=== PATIENT | male | born 1940 | race Caucasian/White ===

== ENCOUNTER → 2017-06-13 | Outpatient (CLI) | payer OTHER, BC ==
[~2017-06-13] MED LIST: ACETAMINOPHEN650 M5 PO; ACTOS 30 MG TAB30 MG; ASPIRIN325 PO; ATIVAN0.5 MG PO; BROVANA15 MCG/2 M; BROVANA15 MCG/2 M INH; BUDESONIDE0.25 MG/2 IH; CARTIA XT240 M1 PO; CEFTIN 250 MG250 MG PO; CIPROFLOXACIN500 M3 PO; COLACE100 MG PO; CYCLOBENZAPRINE5 MG PO; DEMADEX20 MG PO; DILTIAZEM 24HR240 M1 PO; DUONEB 2.5-0.5 M3 ML INH; ENDOCET 5-3251 EACH PO; FUROSEMIDE PO; GABAPENTIN 100100 MG PO; GILPIZIDE PO; GLIPIZIDE 10 MG10 MG PO; GLUCOTROL5 MG PO; HYDROCODON-ACE1 EAC7 PO; IBUPROFEN200 M2; LANTUS SOL100 UNIT/1 SQ; LASIX 20 MG TAB20 MG PO; LEVAQUIN 500 M500 M2 PO; LIPITOR40 MG PO; LOPRESSOR25 PO; METAMUCIL PAC1 UDPKT PO; METFORMIN HCL1000 M1; NEURONTIN 300300 M1 PO; NITROGLYCERIN0.4 MG SUBLING; OXYCODONE HCL 55 MG PO; PACERONE 200 M200 M1 PO; PRINIVIL PO; PRINIVIL20 MG PO; PULMICORT0.5 MG/22 INH; SPIRIVA INH; SYNTHROID100 MCG PO; TAMSULOSIN HCL0.4 MG PO; TYLENOL325 MG PO; VENTOLIN HFA 1818 GM INH; VENTOLIN HFA INH8 GM INH; VITAMIN D2000 UNIT PO; XARELTO15 MG PO; XOPENEX HFA15 GM INH; ZANTAC 150MG T150 MG PO
== END ==
LOC: SPEC 06:30 → MRI 08:32
DX: S32.010A Wedge compression fracture of first lumbar vertebra, initial encounter for closed fracture (principal); M48.061 Spinal stenosis, lumbar region without neurogenic claudication; M51.26 Other intervertebral disc displacement, lumbar region; M47.896 Other spondylosis, lumbar region; I48.92 Unspecified atrial flutter; E11.9 Type 2 diabetes mellitus without complications; J44.9 Chronic obstructive pulmonary disease, unspecified; I10 Essential (primary) hypertension; E78.00 Pure hypercholesterolemia, unspecified; Z87.891 Personal history of nicotine dependence; X58.XXXA Exposure to other specified factors, initial encounter; Y93.89 Activity, other specified; Y92.89 Other specified places as the place of occurrence of the external cause; Y99.8 Other external cause status

== ENCOUNTER → 2017-06-17 | Outpatient (CLI) | payer OTHER, BC ==
[~2017-06-17] VITALS: Ht 172.7 cm; Wt 111.1 kg
[2017-06-17 09:45] VITALS: BP 102/33
[2017-06-17 11:21] LABS: HEMATOCRIT 31.9 % (42.0-52.0); HEMOGLOBIN 10.7 gm/dL (14.0-18.0); MCHC 33.7 g/dL (28.0-37.0); RBC 3.59 mil/uL (4.50-6.00); RDW 14.6 % (10.5-14.5); WBC 6.8 thou/uL (4.0-11.0)
[2017-06-17 11:28] LABS: CALCIUM 9.1 mg/dL (8.5-10.1); CREATININE 1.1 mg/dL (0.7-1.3); POTASSIUM 4.3 mmol/L (3.5-5.1)
[2017-06-17 11:41] LABS: APTT 25.6 Seconds (24.5-32.8); PROTIME 10.5 Seconds (9.3-11.4)
== END | disposition home or self-care (01) ==
LOC: SPEC 09:27
PROVIDERS: Radiology Vascular & Interventional Radiology
DX: M80.88XA Other osteoporosis with current pathological fracture, vertebra(e), initial encounter for fracture (principal); M54.9 Dorsalgia, unspecified; E11.9 Type 2 diabetes mellitus without complications; I10 Essential (primary) hypertension; J44.9 Chronic obstructive pulmonary disease, unspecified; E78.00 Pure hypercholesterolemia, unspecified; I48.91 Unspecified atrial fibrillation; K21.9 Gastro-esophageal reflux disease without esophagitis; G47.33 Obstructive sleep apnea (adult) (pediatric); E66.09 Other obesity due to excess calories; Z98.890 Other specified postprocedural states; Z98.41 Cataract extraction status, right eye; Z98.42 Cataract extraction status, left eye; Z87.891 Personal history of nicotine dependence; Z79.899 Other long term (current) drug therapy; Z79.01 Long term (current) use of anticoagulants; Z85.118 Personal history of other malignant neoplasm of bronchus and lung; Z79.4 Long term (current) use of insulin; Z88.0 Allergy status to penicillin; Z88.8 Allergy status to other drugs, medicaments and biological substances; Z79.891 Long term (current) use of opiate analgesic

== ENCOUNTER 2017-06-19 11:20 | Inpatient (IN) | payer OTHER, BC ==
[~2017-06-19] VITALS: Ht 172.7 cm; Wt 111.1 kg
[~2017-06-19 11:20] MED LIST changes: -CYCLOBENZAPRINE5 MG PO; -LEVAQUIN 500 M500 M2 PO; -NEURONTIN 300300 M1 PO; -OXYCODONE HCL 55 MG PO; -VITAMIN D2000 UNIT PO; -XOPENEX HFA15 GM INH
[2017-06-19 11:21] VITALS: BP 110/59
[2017-06-19 11:50] LABS: ABSOLUTE NEUTROPHILS 7.9 thou/uL (1.4-8.2); BASOPHILS 0.5 % (0.0-2.0); EOSINOPHILS 0.9 % (0.0-3.0); HEMATOCRIT 32.2 % (42.0-52.0); HEMOGLOBIN 10.8 gm/dL (14.0-18.0); LYMPHOCYTES 8.3 % (24.0-44.0); MCHC 33.7 g/dL (28.0-37.0); MCV 88.9 fL (80.0-100.0); MONOCYTES 11.2 % (1.0-8.0); PLATELET COUNT 214 thou/uL (150-400); POLYS 79.1 % (36.0-66.0); RBC 3.62 mil/uL (4.50-6.00); RDW 14.5 % (10.5-14.5)
[2017-06-19 12:03] LABS: POTASSIUM 4.4 mmol/L (3.5-5.1); PROTIME 10.3 Seconds (9.3-11.4)
[2017-06-19 12:10] LABS: ALBUMIN 2.8 g/dL (3.4-5.0); TOTAL BILIRUBIN 0.3 mg/dL (<0.1-1.0); TOTAL PROTEIN 6.3 g/dL (6.4-8.2)
[2017-06-19 13:44] VITALS: BP 103/64
[2017-06-19 13:45] VITALS: BP 103/64
[2017-06-19 14:15] VITALS: BP 140/75
[2017-06-19 20:35] VITALS: BP 129/66
[2017-06-20 05:11] VITALS: BP 110/53
[2017-06-20 07:31] VITALS: BP 115/49
[2017-06-20] MEDS ORDERED: CYCLOBENZAPRINE5 MG PO (10:33)
[2017-06-20 10:51] VITALS: BP 115/49
[2017-09-12] MEDS ORDERED: NEURONTIN 300300 M1 PO (14:59)
[2017-09-12] MEDS ORDERED: OXYCODONE HCL 55 MG PO (15:04)
[2017-09-12] MEDS ORDERED: PACERONE 200 M200 M1 PO (15:11)
[2017-09-16] MEDS ORDERED: LEVAQUIN 500 M500 M2 PO (12:51)
[2017-09-16] MEDS ORDERED: CYCLOBENZAPRINE5 MG PO (12:52)
[2017-09-16] MEDS ORDERED: OXYCODONE HCL 55 MG PO ×2 (12:54→14:01)
[2017-09-16] MEDS ORDERED: SPIRIVA INH (13:06)
[2017-09-16] MEDS ORDERED: VITAMIN D2000 UNIT PO (13:06)
[2017-09-16] MEDS ORDERED: XOPENEX HFA15 GM INH (14:01)
== END 2017-06-20 11:35 | disposition home or self-care (01) | DRG 515 ==
LOC: ER 11:20 → EROBS 12:45 → 4N 12:45 → ENTRNSPT 06-20 11:23 → EDTRNSPTSTS 06-20 11:25 → 4N 06-20 11:35
PROVIDERS: Physician Assistant
PROC: 0QS03ZZ Reposition Lumbar Vertebra, Percutaneous Approach (ICD-10-PCS; principal; 2017-06-17)
PROC: 0QU03JZ Supplement Lumbar Vertebra with Synthetic Substitute, Percutaneous Approach (ICD-10-PCS; principal; 2017-06-17)
DX: M62.830 Muscle spasm of back (principal); E43 Unspecified severe protein-calorie malnutrition; I48.92 Unspecified atrial flutter; S39.012A Strain of muscle, fascia and tendon of lower back, initial encounter; E66.9 Obesity, unspecified; I48.91 Unspecified atrial fibrillation; E11.9 Type 2 diabetes mellitus without complications; J44.9 Chronic obstructive pulmonary disease, unspecified; I10 Essential (primary) hypertension; E78.00 Pure hypercholesterolemia, unspecified; G47.30 Sleep apnea, unspecified; D13.39 Benign neoplasm of other parts of small intestine; N28.1 Cyst of kidney, acquired; B02.9 Zoster without complications; M54.9 Dorsalgia, unspecified; Z79.4 Long term (current) use of insulin; Z79.899 Other long term (current) drug therapy; Z88.0 Allergy status to penicillin; Z88.8 Allergy status to other drugs, medicaments and biological substances; Z98.42 Cataract extraction status, left eye; Z98.41 Cataract extraction status, right eye; Z68.37 Body mass index [BMI] 37.0-37.9, adult; Z87.891 Personal history of nicotine dependence; X58.XXXA Exposure to other specified factors, initial encounter; Y93.89 Activity, other specified; Y92.89 Other specified places as the place of occurrence of the external cause; Y99.8 Other external cause status
CPT/HCPCS: 10091

== ENCOUNTER 2018-04-05 16:37 | Inpatient (IN) | payer OTHER, BC ==
[~2018-04-05] VITALS: Ht 172.7 cm; Wt 117.9 kg
--- NOTE | ~2018-04-05 | EKG ---
[address] [address] ELECTROCARDIOGRAM REPORT Name: GONSALO SPRINGERD Bhanu Room #: 463-P ADM IN M.R.#: [id number] Admission: 04/05/18 Attend Phys: Jermaine Hays MD Discharge: Date of : 39 Report #: [id number] THIS REPORT FOR: //name// [facility] ED Test Date: 2018-04-05 Test Time: 16:54:11 Pat Name: ENOCH SPRINGER Department: Room: 46 Gender: M Fuel Quality Tech: WG : 1940 Requested By: Marcelle Li Order Number: [id number] MD: Ciro Romeo Measurements Intervals [place] Rate: 104 P: 51 KS: 100 QRS: -61 QRSD: 139 T: 51 QT: 406 QTc: 534 Interpretive Statements Atrial fibrillation Electronically Signed On 04-05-2018 21:10:24 PAPER FOLDER by Ciro Romeo [email or web address] <ELECTRONICALLY SIGNED> By: Ciro Romeo MD 04/05/182109 53 [id number] Ciro Romeo MD /JASIEL
--- NOTE | ~2018-04-05 | HC ---
[facility] [place] [address] CONSULTATION Name: ENOCH SPRINGER Room #: 463-P ADM IN M.R.#: [id number] Admission: 04/05/18 Attend Phys: Jermaine Hays MD Discharge: Date of : 39 Report #: [id number] THIS REPORT FOR: //name// CC: Jermaine Martinez REFERRAL PHYSICIAN: Dr. Hays. PRIMARY CARE PHYSICIAN: Dr. Kenneth Martinez. REASON FOR REFERRAL: Dyspnea. HISTORY OF PRESENT ILLNESS: The patient is a 77-year-old white male who presents to the Emergency Room with progressive dyspnea. A pulmonary consultation was requested. The patient has an extensive pulmonary history. He was diagnosed with lung cancer, undergoing right pneumonectomy in 08/2005. He has done very well since the surgery. He has severe COPD with a baseline FEV1 of 0.76 liters or 25% predicted, FVC measured 1.23 liters, 29% predicted, FEV1/FVC ratio was 62%. There was a mixed restrictive and obstructive defect. The patient has been oxygen dependent since 2005. He is normally on Spiriva, nebulized Xopenex, nebulized Brovana twice a day, nebulized budesonide 0.25 mg twice a day. The patient states for the past month, he has had trouble with dyspnea and productive cough. He was given antibiotics earlier in the month. Symptoms improved only to return again. For the past several days, he again noted increasing cough, dyspnea. His cough productive of yellowish and green sputum. Denies any chest pain, hemoptysis. No one at home has been ill other than him. PAST MEDICAL HISTORY: As mentioned above including diabetes mellitus type 2, COPD, lung cancer, status post right pneumonectomy 2005, hypertension, hypercholesterolemia, chronic hypoxic respiratory failure on 2 liters of O2, atrial fibrillation/flutter, ELIZABETH on CPAP, coronary artery disease, peripheral artery disease, L1 compression fracture, previous sleep study showed the patient requires a CPAP of 18 cm H2O, history of left lower lung nodule in 2014. PAST SURGICAL HISTORY: As mentioned above. Prior vertebroplasty, rotator cuff surgery. ALLERGIES: TO PENICILLIN, REACTIONS UNSPECIFIED. HOME MEDICATIONS: As mentioned above including tamsulosin, Ativan, insulin supplements, Colace, Nitrostat, Neurontin, Demadex, recent course of Levaquin, Lipitor, amiodarone, Cartia, Synthroid. [facility] [address] [place] [address] CONSULTATION Name: ENOCH SPRINGER Room #: 463-P [facility] IN [facility].#: [id number] Admission: 04/05/18 Attend Phys: Jermaine Hays MD Discharge: Date of : 39 Report #: [id number] FAMILY HISTORY: Notable for diabetes, coronary artery disease, gastric carcinoma. SOCIAL HISTORY: The patient has smoked for many years at 2 packs a day for 50+ years, quit in 2005. He denies any alcohol use. He is . REVIEW OF SYSTEMS: As mentioned above, otherwise, a 10-point system review negative. PHYSICAL EXAMINATION: GENERAL: He is awake, alert, in no apparent distress. VITAL SIGNS: Temperature is 97.7 degrees Fahrenheit, pulse is 100, respiratory rate 16, blood pressure 130/70 mmHg, saturation 97%. HEENT: Normocephalic, atraumatic. NECK: Supple, no lymphadenopathy or thyromegaly. CHEST: Breath sounds are good in the left lung field with mild expiratory wheezes. Breath sounds are absent in the right. CARDIOVASCULAR: Normal S1, S2. There are no murmurs or gallop. There is no JVD. There is no carotid bruit. Pulses are 2+/4+ bilaterally. ABDOMEN: Soft, nontender, no organomegaly or masses felt. GENITOURINARY: Deferred. RECTAL: Deferred. EXTREMITIES: There is no edema, cyanosis or clubbing. LABORATORY DATA: Portable chest x-ray shows clear left lung field. Totally opacified right lung field is noted. Mediastinum is shifted to the right. Pulmonary vasculatures on the left lung field appear to be prominent. Echocardiogram from 2012 showed pulmonary artery pressure measuring 54 mmHg. LV function slightly reduced with ejection fraction 45%-50%, no significant valvular abnormality. Leg ultrasound shows no evidence of DVT. EKG shows atrial fibrillation. Electrolytes are normal except for creatinine of 1.2, BUN is 19. Sodium 141, potassium 4.5, chloride 99, CO2 is 35. Arterial blood gas revealed pH 7.40, pCO2 60, pO2 86 on 2 liters of O2. Albumin 3.1. WBC 7300, hemoglobin 10.9, platelets are normal, no evidence of bandemia. IMPRESSION: 1. Persistent cough, dyspnea in this 77-year-old white male with a history of lung cancer, status post right pneumonectomy and chronic obstructive pulmonary disease. He has a productive cough of purulent sputum. Suspect lower respiratory infection. 2. Chronic obstructive pulmonary disease, severe impairment with a mixed restrictive component. 3. Lung cancer, status post right pneumonectomy 2005. 4. Pulmonary hypertension due to above. Echocardiogram from 2012 showed pulmonary artery pressure around 54 mmHg. [facility] [address] [place] [address] CONSULTATION Name: ENOCH SPRINGER Room #: 463-P [facility] IN [place].#: [id number] Admission: 04/05/18 Attend Phys: Jermaine Hays MD Discharge: Date of : 39 Report #: [id number] 5. Svprv-nm-btybnyh hypercapnic hypoxic respiratory failure due to above. 6. Coronary artery disease. 7. Permanent atrial fibrillation, flutter. 8. Cardiomyopathy, ejection fraction mildly reduced at 45%-50%. 9. Obstructive sleep apnea, on home CPAP. 10. Diabetes mellitus type 2. 11. Hypertension. 12. Remote history of tobacco use. RECOMMENDATIONS: We would recommend broad-spectrum antibiotics, corticosteroids and bronchodilators. DVT and GI prophylaxis recommended. As an outpatient, would recommend follow up echocardiogram regarding his pulmonary artery pressures. Thank you for this consultation. <ELECTRONICALLY SIGNED> By: Neil Varma MD 04/06/18 1659 1520 1656 Neil Varma MD /nt
[2018-04-05 16:37] VITALS: BP 114/64
[~2018-04-05 16:37] MED LIST changes: +CYCLOBENZAPRINE5 MG PO; +LEVAQUIN 500 M500 M2 PO; +NEURONTIN 300300 M1 PO; +OXYCODONE HCL 55 MG PO; +VITAMIN D2000 UNIT PO; +XOPENEX HFA15 GM INH
[2018-04-05] MEDS ORDERED: NORCO 5-325 TA1 EACH PO (17:00)
[2018-04-05] MEDS ORDERED: TYLENOL325 MG PO (17:01)
[2018-04-05] MEDS ORDERED: LEVAQUIN 750 M750 MG PO (17:04)
[2018-04-05 17:10] LABS: ABSOLUTE NEUTROPHILS 5.8 thou/uL (1.4-8.2); BASOPHILS 0.5 % (0.0-2.0); EOSINOPHILS 1.9 % (0.0-3.0); HEMATOCRIT 32.6 % (42.0-52.0); HEMOGLOBIN 10.9 gm/dL (14.0-18.0); LYMPHOCYTES 10.2 % (24.0-44.0); MCH 30.5 pg (26.0-34.0); MCHC 33.4 g/dL (28.0-37.0); MCV 91.2 fL (80.0-100.0); MONOCYTES 8.7 % (1.0-8.0); PLATELET COUNT 133 thou/uL (150-400); POLYS 78.7 % (36.0-66.0); RBC 3.57 mil/uL (4.50-6.00); WBC 7.3 thou/uL (4.0-11.0)
[2018-04-05 17:19] LABS: ANION GAP 3 mmol/L (7-16); BUN 16 mg/dL (7-18); CALCIUM 9.4 mg/dL (8.5-10.1); CHLORIDE 100 mmol/L (98-107); CO2 38 mmol/L (21-32); CREATININE 1.2 mg/dL (0.7-1.3); GLUCOSE 139 mg/dL (74-106); POTASSIUM 4.3 mmol/L (3.5-5.1); SODIUM 141 mmol/L (136-145)
[2018-04-05 17:29] LABS: ALBUMIN 3.1 g/dL (3.4-5.0); SGOT 28 U/L (15-37); SGPT 36 U/L (30-65); TOTAL BILIRUBIN 0.3 mg/dL (<0.1-1.0); TROPONIN-I <0.06 ng/mL (<0.06)
[2018-04-05 17:31] LABS: BE(vivo) 10.9 mmol/L (-2 to +3); HCO3 37.5 mmol/L (22.0-26.0); PCO2 60.8 mmHg (35.0-45.0); PO2 86.4 mmHg (80.0-100.0); pH 7.408 (7.360-7.450); sO2 96.4 % (92.0-98.0)
[2018-04-05 18:43] LABS: ALBUMIN 3.2 g/dL (3.4-5.0)
[2018-04-05 18:45] LABS: URINE BILIRUBIN NEGATIVE (Negative); URINE BLOOD NEGATIVE (Negative); URINE CLARITY CLEAR; URINE COLOR YELLOW; URINE GLUCOSE-RANDOM* NEGATIVE (Negative); URINE KETONES NEGATIVE (Negative); URINE LEUKOCYTES NEGATIVE (Negative); URINE NITRITE NEGATIVE (Negative); URINE PROTEIN (DIPSTICK) NEGATIVE (Negative); URINE UROBILINOGEN 0.2 E.U./dl (0.2-1.0)
[2018-04-05 19:09] LABS: TSH 3.16 uIU/mL (0.358-3.740)
[2018-04-05 19:36] VITALS: BP 129/68
[2018-04-05 19:53] LABS: % SATURATION 15 % (20-39); IRON 59 ug/dL (65-175); TIBC 381 ug/dL (250-450)
[2018-04-05 20:11] VITALS: BP 121/58
[2018-04-05 20:22] VITALS: BP 151/81
[2018-04-06 02:00] VITALS: BP 139/74; BP 140/51
[2018-04-06 05:32] LABS: HEMATOCRIT 35.3 % (42.0-52.0); HEMOGLOBIN 11.4 gm/dL (14.0-18.0); MCH 29.4 pg (26.0-34.0); MCHC 32.2 g/dL (28.0-37.0); MCV 91.4 fL (80.0-100.0); RBC 3.87 mil/uL (4.50-6.00); RDW 15.6 % (10.5-14.5); WBC 5.6 thou/uL (4.0-11.0)
[2018-04-06 05:44] LABS: CALCIUM 9.5 mg/dL (8.5-10.1); CREATININE 1.2 mg/dL (0.7-1.3); MAGNESIUM 1.7 mg/dL (1.8-2.4); POTASSIUM 4.5 mmol/L (3.5-5.1)
[2018-04-06 08:29] VITALS: BP 130/73
[2018-04-06 16:54] VITALS: BP 95/51
[2018-04-06 19:40] VITALS: BP 141/87
[2018-04-07 03:17] VITALS: BP 113/61
[2018-04-07 06:12] LABS: HEMATOCRIT 33.4 % (42.0-52.0); HEMOGLOBIN 11.3 gm/dL (14.0-18.0); MCH 30.7 pg (26.0-34.0); MCV 90.5 fL (80.0-100.0); RBC 3.69 mil/uL (4.50-6.00); RDW 15.9 % (10.5-14.5); WBC 9.8 thou/uL (4.0-11.0)
[2018-04-07 06:22] LABS: CALCIUM 9.4 mg/dL (8.5-10.1); CREATININE 1.3 mg/dL (0.7-1.3); MAGNESIUM 1.6 mg/dL (1.8-2.4); POTASSIUM 3.8 mmol/L (3.5-5.1)
[2018-04-07 07:31] VITALS: BP 129/77
[2018-04-07] MEDS ORDERED: MIRAPEX0.125 MG PO (14:13)
[2018-04-07] MEDS ORDERED: B-12500 MCG PO (14:14)
[2018-04-07] MEDS ORDERED: PREDNISONE 10 M10 MG PO (14:16)
[2018-04-07] MEDS ORDERED: AZITHROMYCIN 2250 MG PO (14:17)
[2018-04-07 14:38] VITALS: BP 129/77
[2018-04-11 02:11] LABS: ADENOVIRUS Negative (Negative); INFLUENZA A Negative (Negative); INFLUENZA B Negative (Negative); METAPNEUMOVIRUS Negative (Negative); PARAINFLUENZA 1 Negative (Negative); PARAINFLUENZA 2 Negative (Negative); PARAINFLUENZA 3 Negative (Negative); RHINOVIRUS Negative (Negative); RSV A Negative (Negative); RSV B Negative (Negative)
== END 2018-04-07 15:51 | disposition home or self-care (01) | DRG 871 ==
LOC: ER 16:37 → 4W 18:17 → EROBS 18:17 → 4W 20:14 → ENTRNSPT 04-07 15:04 → EDTRNSPTSTS 04-07 15:06 → 4W 04-07 15:51
PROVIDERS: Internal Medicine; Student in an Organized Health Care Education/Training Program
DX: A41.9 Sepsis, unspecified organism (principal); J96.22 Acute and chronic respiratory failure with hypercapnia; J96.21 Acute and chronic respiratory failure with hypoxia; J44.1 Chronic obstructive pulmonary disease with (acute) exacerbation; I10 Essential (primary) hypertension; E78.00 Pure hypercholesterolemia, unspecified; G47.33 Obstructive sleep apnea (adult) (pediatric); E11.51 Type 2 diabetes mellitus with diabetic peripheral angiopathy without gangrene; I25.10 Atherosclerotic heart disease of native coronary artery without angina pectoris; I27.20 Pulmonary hypertension, unspecified; I48.2 Chronic atrial fibrillation; E03.9 Hypothyroidism, unspecified; E83.42 Hypomagnesemia; E53.8 Deficiency of other specified B group vitamins; N40.0 Benign prostatic hyperplasia without lower urinary tract symptoms; I25.5 Ischemic cardiomyopathy; Z98.42 Cataract extraction status, left eye; Z85.118 Personal history of other malignant neoplasm of bronchus and lung; Z98.41 Cataract extraction status, right eye; Z88.0 Allergy status to penicillin; Z87.891 Personal history of nicotine dependence; Z87.81 Personal history of (healed) traumatic fracture; Z83.3 Family history of diabetes mellitus; Z82.49 Family history of ischemic heart disease and other diseases of the circulatory system; Z80.0 Family history of malignant neoplasm of digestive organs
CPT/HCPCS: 10045

== ENCOUNTER → 2018-06-15 | Outpatient (CLI) | payer OTHER, BC ==
[~2018-06-15] MED LIST changes: +AZITHROMYCIN 2250 MG PO; +B-12500 MCG PO; +LEVAQUIN 750 M750 MG PO; +MIRAPEX0.125 MG PO; +NORCO 5-325 TA1 EACH PO; +PREDNISONE 10 M10 MG PO
== END ==
LOC: RAD 11:26
DX: C34.90 Malignant neoplasm of unspecified part of unspecified bronchus or lung (principal); J18.9 Pneumonia, unspecified organism

== ENCOUNTER → 2019-09-10 | Outpatient (CLI) | payer OTHER, BC | LOC: SJCVCIMAG 07:27 | DX: R94.31 Abnormal electrocardiogram [ECG] [EKG] (principal); I45.4 Nonspecific intraventricular block; I65.23 Occlusion and stenosis of bilateral carotid arteries; S32.010A Wedge compression fracture of first lumbar vertebra, initial encounter for closed fracture; I34.0 Nonrheumatic mitral (valve) insufficiency; I25.10 Atherosclerotic heart disease of native coronary artery without angina pectoris; I48.21 Permanent atrial fibrillation; E78.5 Hyperlipidemia, unspecified; G47.33 Obstructive sleep apnea (adult) (pediatric); E78.2 Mixed hyperlipidemia; I10 Essential (primary) hypertension; J44.9 Chronic obstructive pulmonary disease, unspecified; X58.XXXA Exposure to other specified factors, initial encounter; Y93.89 Activity, other specified; Y92.89 Other specified places as the place of occurrence of the external cause; Y99.8 Other external cause status ==

== ENCOUNTER 2020-05-28 22:12 | Inpatient (IN) | payer OTHER, BC ==
[~2020-05-28] VITALS: Ht 172.7 cm; Wt 127.0 kg
--- NOTE | 2020-05-29 01:07 | NUR ---
Admission assessment and history is completed. Bed alarm is on.
[2020-05-29 03:30] VITALS: BP 191/96
[2020-05-29 03:42] LABS: HEMATOCRIT 33.9 % (42.0-52.0); HEMOGLOBIN 11.1 gm/dL (14.0-18.0); MCH 31.5 pg (26.0-34.0); MCHC 32.7 g/dL (28.0-37.0); MCV 96.4 fL (80.0-100.0); RBC 3.52 mil/uL (4.50-6.00); RDW 14.2 % (10.5-14.5); WBC 9.7 thou/uL (4.0-11.0)
[2020-05-29 03:53] LABS: ANION GAP 7 mmol/L (7-16); BUN 36 mg/dL (7-18); CHLORIDE 97 mmol/L (98-107); CHOLESTEROL 193 mg/dL (<200); CO2 36 mmol/L (21-32); CREATININE 1.9 mg/dL (0.7-1.3); GLUCOSE 341 mg/dL (74-106); HDL CHOLESTEROL 106 mg/dL (>40); LDL CHOLESTEROL 69 mg/dL (<100); POTASSIUM 4.4 mmol/L (3.5-5.1); SODIUM 140 mmol/L (136-145); TC:HDL 1.8 Ratio (Not establshd); TRIGLYCERIDE 94 mg/dL (<150); TROPONIN-I <0.06 ng/mL (<0.06); VLDL 19 mg/dL (<40)
[2020-05-29 04:42] LABS: CALCIUM 9.8 mg/dL (8.5-10.1); SERUM ASSESSMENT Clear
[2020-05-29 07:50] VITALS: BP 167/97
[2020-05-29] MEDS ORDERED: AMARYL2 M1 PO (07:55)
[2020-05-29] MEDS ORDERED: PACERONE200 MG PO (07:56)
[2020-05-29] MEDS ORDERED: PROSCAR 5MG TABL5 M1 PO (07:58)
--- NOTE | 2020-05-29 08:08 | NUR ---
Pt. arrived to the unit as a direct admit from [facility]. Upon arrival he is on bipap. Alert and oriented with some forgetfulness. Easily short of air upon activity. Bed alarm is on.
--- NOTE | 2020-05-29 09:58 | NUR ---
Nutrition Note: RD consulte d/t BMI > 40 (currently 42.6). Pt reporting his appetite is at baseline, but reports he does not eat much anymore. Ate some of the scrambled eggs at breakfast. Drinks tomato juice and eats HB eggs at home as "supplements". Denies any recent wt changes and reports UBW of 270#, wt per bedscale this am 280# per bedscale, though noted 2+ pitting edema of BLE. No c/o GI distress at present. No PU noted. Pt remains low nutritional risk, RD will continue to monitor.
[2020-05-29 11:35] VITALS: BP 155/100
--- NOTE | 2020-05-29 15:53 | NUR ---
Patient admits from [facility] with resp distress. Sp with patient by phone briefly and rec permmission to sp with s/o. Sp with s/o who reports she and Florian live together in double wide trailer 1800 sg feet. Patient essentially homebound per s/o. They have been together for 20 years. Patient only leaves for Dr velázquez. Cardiology Dr Payton, Pulmonary Dr Garvin, Internal Dr Martinez. s/o reports all phys at [facility]. Patient has home oxygen with [employer]. Concentrator to 5 liters. Patient on 2 liters at rest and 4 liters with activity. Patient with hx of lung cancer s/o reports he has one lung. He ambulates with 4 prong cane at home and short distances. He uses walker in community and transport chair. Patient with walk-in shower, hard wood floors and no throw rugs and rails on his bed. He uses a urinal near him as well. S/O reports he has "a night time ventelator" Patient was at [facility] at end of Nov with PNA/Sepsis. Patient returned home with care, cannot recall agency. S/O reports rehab offered at that time and patient declined. She believes he may need this time. He fell at home and she could not help him up and needed to call paramedics. She is does not know what stage patient is in COPD but knows it is getting worse. Discussed if transfer off unit, visiting hours policy. S/O to discuss with patients children who would be designated visitor. S/O plans to fern picker his portable oxygen possible tomorrow she is aware cannot visit patient. Updated RN.
[2020-05-29 16:25] VITALS: BP 132/71
--- NOTE | 2020-05-29 18:01 | NUR ---
ASSUMED PATIENT CARE AT 0700.A/O X4. ANXIOUS AND RESTLESS. C/O BLE PAIN. TOLERATED ON 4L/NC. BLE 2+ EDEMA. SLOWLY TOWARDS POC GOLAS.
[2020-05-30 00:06] LABS: GLYCOHEMOGLOBIN (HGB A1C) 8.2 % (4.8-5.6)
[2020-05-30 04:04] VITALS: BP 129/75
[2020-05-30 05:38] LABS: HEMATOCRIT 32.3 % (42.0-52.0); HEMOGLOBIN 10.5 gm/dL (14.0-18.0); MCH 31.5 pg (26.0-34.0); MCHC 32.6 g/dL (28.0-37.0); MCV 96.7 fL (80.0-100.0); RBC 3.34 mil/uL (4.50-6.00); RDW 14.4 % (10.5-14.5); WBC 12.3 thou/uL (4.0-11.0)
[2020-05-30 05:53] LABS: ALBUMIN 2.9 g/dL (3.4-5.0); CALCIUM 9.8 mg/dL (8.5-10.1); CREATININE 1.8 mg/dL (0.7-1.3); MAGNESIUM 1.7 mg/dL (1.8-2.4); PHOSPHORUS 3.4 mg/dL (2.5-4.9); POTASSIUM 3.9 mmol/L (3.5-5.1)
[2020-05-30 06:06] LABS: TROPONIN-I 2.48 ng/mL (<0.06)
--- NOTE | 2020-05-30 06:45 | NUR ---
Received pt. on 4L/NC with O2 sat in the mid to upper 90's. Shortness of breath with exertion. Refused to wear BIPAP last night. Pt. has negative COVID PCR which has been reported to EVENT SECURITY OFFICER , Leif Yu and powerhouse mechanic helper. Dr. Haresh Li cleared him off enhanced precaution. Pt. informed he will be transferred to 211 since he tested negative for COVID.Report given to 2N RN. Pt. stated he only slept for about an hour and a half. Elevated troponin called to EVENT SECURITY OFFICER who ordered a cardiology consult. Pt. denies any chest pain. 2N RN updated and pt. transferred to 211 with all his belongings. Voided per urinal.
[2020-05-30 07:59] VITALS: BP 129/66
[2020-05-30 12:00] VITALS: BP 120/57
--- NOTE | 2020-05-30 14:20 | NUR ---
PT LAYING IN BED ON HIS LEFT SIDE. PT C/O OF BEING HOT AND SWEATY. RECHECKED PTS BLOOD GLUCOSE. PTS BLOOD GLUCOSE WAS 174. PTS VSS. WILL CONTINUE TO MONITOR. PT STATES HE IS BEGINNING TO FEEL BETTER.
[2020-05-30 16:15] VITALS: BP 113/63
--- NOTE | 2020-05-30 16:51 | NUR ---
Case discussed with the care team. Pt now on bipap and tx to CCU from 3w. Covid neg. Pulm consulted. No weekend dc anticipated. Will follow.
--- NOTE | 2020-05-30 17:43 | NUR ---
PT RESTING AT THIS TIME. PTS VSS. PREPARING FOR SHIFT CHANGE.
[2020-05-30 19:39] VITALS: BP 168/87
[2020-05-31 04:23] LABS: CALCIUM 10.6 mg/dL (8.5-10.1); CREATININE 1.8 mg/dL (0.7-1.3)
[2020-05-31 04:24] LABS: POTASSIUM 4.4 mmol/L (3.5-5.1)
[2020-05-31 04:40] VITALS: BP 138/70
[2020-05-31 07:25] VITALS: BP 117/69
--- NOTE | 2020-05-31 16:25 | 2DMMODE ---
[facility] [address] [place] [address] 2 D/M-MODE ECHOCARDIOGRAM Name: ENOCH SPRINGER Room #: 211-P ADM IN .R.#: [id number] Admission: 05/29/20 Attend Phys: Gilda Mcintosh Discharge: Date of : 39 Report #: [id number] THIS REPORT FOR: cc: Kenneth Martinez MD, Rene P. MD Lammoglia, Francisco J. MD ~ APPROVED REPORT Study performed: 05/31/2020 12:13:54 EXAM: Comprehensive 2D, Doppler, and color-flow Echocardiogram Patient Location: In-Patient Room #: 211 Status: routine BSA: 2.35 HR: 100 bpm BP: 117/69 mmHg Rhythm: Tachycardia Other Information Study Quality: Technically Difficult Indications Congestive Heart Failure 2D Dimensions IVSd: 13.74 (7-11mm) LVOT Diam: 26.88 (18-24mm) LVDd: 65.01 mm PWd: 17.33 (7-11mm) LVDs: 50.90 (25-40mm) Left Atrium: 43.72 (27-40mm) Aortic Root: 41.68 mm Volumes Left Atrial Volume (Systole) Single Plane 4CH: 49.39 mL Single Plane 2CH: 39.61 mL Aortic Valve AoV Peak Javon.: 1.88 m/s AO Peak Gr.: 14.20 mmHg LVOT Max P.31 mmHg LVOT Max V: 0.91 m/s BRETT Vmax: 2.74 cm2 Mitral Valve [facility] [address] [place] [address] 2 D/M-MODE ECHOCARDIOGRAM Name: ENOCH SPRINGER Room #: 211-P [facility] IN M.R.#: [id number] Admission: 05/29/20 Attend Phys: Gilda Maza Discharge: Date of : 39 Report #: [id number] MV Peak Gr.: 3.37 mmHg ERO: 50.20 mm2 MV Mean Gr.: 1.06 mmHg E/A Ratio: 1.1 MV Decel. Time: 2680.72 ms MV E Max Javon.: 0.56 m/s MV A Javon.: 0.51 m/s MV Max Javon.: 0.92 m/s MV Mean Javon.: 0.47 m/s MV VTI: 381.77 mm MR Radius: 0.73 cm MV PHT: 777.41 ms MR Als. Javon: 0.95 m/s MR Flow: 319.72 mL/s Tricuspid Valve TR Peak Javon.: 1.51 m/s TR Peak Gr.: 9.09 mmHg Left Ventricle Left ventricle is dilated. Mild concentric left ventricular hypertrophy. Left ventricular systolic function is mildly decreased. LVEF is 40-45%. Right Ventricle The right ventricle is normal size. The right ventricular systolic function is normal. Atria Left atrium is dilated. The right atrium size is normal. Aortic Valve The aortic valve is normal in structure. No aortic regurgitation is present. There is no aortic valvular stenosis. Mitral Valve The mitral valve is normal in structure. Mild to moderate mitral regurgitation. No evidence of mitral valve stenosis. Tricuspid Valve The tricuspid valve is normal in structure. Trace tricuspid regurgitation. Pulmonic Valve The pulmonary valve is normal in structure. There is no pulmonic valvular regurgitation. Great Vessels Aortic root is dilated. IVC is not well visualized. [facility] [employer] [place] [address] 2 D/M-MODE ECHOCARDIOGRAM Name: ENOCH SPRINGER Bhanu Room #: 211-P [facility] IN M.R.#: [id number] Admission: 05/29/20 Attend Phys: Gilda Maza Discharge: Date of : 39 Report #: [id number] Pericardium No significant pericardial effusion is noted <Conclusion> Left ventricle is dilated. Mild concentric left ventricular hypertrophy. LVEF is 40-45%. The right ventricle is normal size. Left atrium is dilated. The aortic valve is normal in structure. The mitral valve is normal in structure. Mild to moderate mitral regurgitation. The tricuspid valve is normal in structure. Trace tricuspid regurgitation. The pulmonary valve is normal in structure. Aortic root is dilated. No significant pericardial effusion is noted <ELECTRONICALLY SIGNED> By: Dane Thompson MD 05/31/20 1624 1624 162 Dane Thompson MD /INF
[2020-05-31 16:32] VITALS: BP 128/69
--- NOTE | 2020-05-31 18:44 | NUR ---
ASSESSMENT CHARTED. PT ALERT AND ORIENTED. VSS. PRN PAIN MED GIVEN WITH PARTIAL RELIEF. RT TREATMENT PROVIDED ORDERED. NO RESPIRATORY DISTRESS NOTED. DIURESING WELL. PT PROGRESSING WELL TOWARDS DISCHARGE GOAL.
[2020-05-31 20:31] VITALS: BP 106/61
[2020-06-01 05:45] VITALS: BP 126/68
[2020-06-01 07:59] VITALS: BP 122/59
[2020-06-01 11:06] LABS: CALCIUM 10.2 mg/dL (8.5-10.1); CREATININE 2.2 mg/dL (0.7-1.3); POTASSIUM 3.9 mmol/L (3.5-5.1); TOTAL BILIRUBIN 0.4 mg/dL (0.2-1.0); TOTAL PROTEIN 6.6 g/dL (6.4-8.2)
[2020-06-01 11:08] VITALS: BP 127/68
[2020-06-01 15:06] VITALS: BP 118/56
--- NOTE | 2020-06-01 16:42 | NUR ---
ASSESSMENT CHARTED. PT ALERT AND ORIENTED. VSS. PRN PAIN MED GIVEN WITH PARTIAL RELEIF. NO RESPIRATORY DISTRESS NOTED. PLAN TO DISCHARGE IN AM. PT PROGRESSING SLOWLY TOWARDS DISCHARGE GOAL.
--- NOTE | 2020-06-01 17:21 | NUR ---
PROBABLE DISCHARGE ON TUESDAY, 06/02. PATIENT WANTS TO RETURN HOME. POSSIBLE HOME HEALTH OR REHAB DISCUSSED WITH RN. PT AND OT EVALUATIONS COMPLETED. PATIENT WILL NEED HOME O2. LEFT MESSAGE TO CONTROL ANALYST FOR TUESDAY.
[2020-06-01 21:05] VITALS: BP 122/62
[2020-06-02 03:53] VITALS: BP 131/63
--- NOTE | 2020-06-02 07:24 | EKG ---
[address] [place] [address] ELECTROCARDIOGRAM REPORT Name: ENOCH SPRINGER Room #: 211-P ADM IN M.R.#: [id number] Admission: 05/29/20 Attend Phys: Gilda Mcintosh Discharge: Date of : 39 Report #: [id number] [facility] Test Date: 2020-05-31 Test Time: 08:49:41 Pat Name: ENOCH SPRINGER Department: Room: 211 P Gender: M Oracle Consultant: : 1940 Requested By: Gary Payton Order Number: [id number] MD: Gary Payton Measurements Intervals [place] Rate: 83 P: 40 WV: 191 QRS: 42 QRSD: 138 T: 48 QT: 411 QTc: 483 Interpretive Statements Sinus rhythm Nonspecific intraventricular conduction delay Baseline wander in lead(s) V1,V2 Compared to ECG 04/05/2018 16:54:11 Atrial flutter no longer present Electronically Signed On 06-02-2020 7:24:14 [employer]ERSON [employer] by Gary Payton [email or web address] <ELECTRONICALLY SIGNED> By: Gary Payton MD, [facility] 06/02/20 0724 Gary Payton MD, [facility] /EPI
--- NOTE | 2020-06-02 08:05 | NUR ---
assessments as charted, prn pain meds given for le leg pain, hopes to go home today may need hh and or rehab also, report given to next shift to con't with ppoc.
[2020-06-02 12:00] VITALS: BP 120/53
[2020-06-02] MEDS ORDERED: TORSEMIDE20 MG PO (12:36)
[2020-06-02] MEDS ORDERED: PREDNISONE 10 M10 M1 PO (12:37)
[2020-06-02] MEDS ORDERED: KLOR-CON 10 ER10 MEQ PO (12:38)
[2020-06-02 13:08] VITALS: BP 131/83
[2020-06-02 14:04] VITALS: BP 131/83
--- NOTE | 2020-06-02 16:00 | NUR ---
Patient to discharge home today. He wants to discharge home. Home Health ordered agreeable to use [facility] that services their area and have used in past. DC liaison planner faxed referral and orders and they are able to accept.
--- NOTE | 2020-06-02 16:31 | NUR ---
PT WORKED WITH PT, GOOD TO GO HOME WITH HH, CAME AND PICKED HIM UP, HAS O2 FROM HOME, PT LEFT WITH AND TOOK ALL BELONGINGS
--- NOTE | 2020-06-05 08:58 | NUR ---
Note Given: Y Facility List Provided:Y Facility Mandeep: None chosen at this time [address] MAN spoke with pt regrding [facility] on 06/02/20
== END 2020-06-02 14:25 | disposition home health service (06) | DRG 871 ==
LOC: 3W 22:12 → 2N 05-30 06:56
PROVIDERS: Internal Medicine; Nurse Practitioner Family; ADMIT Hospitalist; ATTEND Hospitalist
PROC: 5A09357 Assistance with Respiratory Ventilation, Less than 24 Consecutive Hours, Continuous Positive Airway Pressure (ICD-10-PCS; principal; 2020-05-29)
DX: A41.9 Sepsis, unspecified organism (principal); J18.9 Pneumonia, unspecified organism; I21.A1 Myocardial infarction type 2; J96.21 Acute and chronic respiratory failure with hypoxia; J96.22 Acute and chronic respiratory failure with hypercapnia; I50.33 Acute on chronic diastolic (congestive) heart failure; I13.0 Hypertensive heart and chronic kidney disease with heart failure and stage 1 through stage 4 chronic kidney disease, or unspecified chronic kidney disease; J44.1 Chronic obstructive pulmonary disease with (acute) exacerbation; I48.20 Chronic atrial fibrillation, unspecified; J44.0 Chronic obstructive pulmonary disease with (acute) lower respiratory infection; I48.92 Unspecified atrial flutter; I42.9 Cardiomyopathy, unspecified; G47.33 Obstructive sleep apnea (adult) (pediatric); E03.9 Hypothyroidism, unspecified; I25.10 Atherosclerotic heart disease of native coronary artery without angina pectoris; I73.9 Peripheral vascular disease, unspecified; I27.23 Pulmonary hypertension due to lung diseases and hypoxia; E78.00 Pure hypercholesterolemia, unspecified; E78.5 Hyperlipidemia, unspecified; I65.23 Occlusion and stenosis of bilateral carotid arteries; E11.42 Type 2 diabetes mellitus with diabetic polyneuropathy; N18.30 Chronic kidney disease, stage 3 unspecified; E11.22 Type 2 diabetes mellitus with diabetic chronic kidney disease; Z20.822 Contact with and (suspected) exposure to COVID-19; Z85.118 Personal history of other malignant neoplasm of bronchus and lung; Z87.891 Personal history of nicotine dependence; Z79.4 Long term (current) use of insulin; Z79.899 Other long term (current) drug therapy; Z98.42 Cataract extraction status, left eye; Z98.41 Cataract extraction status, right eye
CPT/HCPCS: 10081; 10879

== ENCOUNTER 2020-06-17 13:46 | Inpatient (IN) | payer OTHER, BC ==
[~2020-06-17] VITALS: Ht 172.7 cm; Wt 171.9 kg
[~2020-06-17 13:46] MED LIST changes: +AMARYL2 M1 PO; +KLOR-CON 10 ER10 MEQ PO; +PACERONE200 MG PO; +PREDNISONE 10 M10 M1 PO; +PROSCAR 5MG TABL5 M1 PO; +TORSEMIDE20 MG PO
[2020-06-17 13:50] VITALS: BP 124/65
[2020-06-17 14:53] LABS: ABSOLUTE NEUTROPHILS 6.1 thou/uL (1.4-8.2); BASOPHILS 0.2 % (0.0-2.0); EOSINOPHILS 0.8 % (0.0-3.0); HEMATOCRIT 27.9 % (42.0-52.0); LYMPHOCYTES 6.5 % (24.0-44.0); MCH 31.4 pg (26.0-34.0); MCHC 32.1 g/dL (28.0-37.0); MCV 97.6 fL (80.0-100.0); MONOCYTES 13.2 % (1.0-8.0); PLATELET COUNT 114 thou/uL (150-400); POLYS 79.3 % (36.0-66.0); RBC 2.86 mil/uL (4.50-6.00); RDW 14.5 % (10.5-14.5); WBC 7.7 thou/uL (4.0-11.0)
[2020-06-17 15:07] LABS: BE(vivo) 12.2 mmol/L (-2 to +3); PO2 197.9 mmHg (80.0-100.0); pH 7.335 (7.360-7.450); sO2 99.2 % (92.0-98.0)
[2020-06-17 15:08] LABS: ANION GAP < 0 mmol/L (7-16); APTT 22.1 Seconds (24.5-32.8); BUN 58 mg/dL (7-18); CALCIUM 9.1 mg/dL (8.5-10.1); CHLORIDE 100 mmol/L (98-107); CO2 43 mmol/L (21-32); CREATININE 2.1 mg/dL (0.7-1.3); GLUCOSE 255 mg/dL (74-106); POTASSIUM 4.6 mmol/L (3.5-5.1); PROTIME 10.5 Seconds (9.3-11.4); SODIUM 141 mmol/L (136-145)
[2020-06-17 15:09] LABS: PCO2 78.7 mmHg (35.0-45.0)
[2020-06-17 15:17] LABS: ALBUMIN 2.4 g/dL (3.4-5.0); SGOT 36 U/L (15-37); SGPT 50 U/L (30-65); TOTAL BILIRUBIN 0.3 mg/dL (0.2-1.0); TOTAL PROTEIN 6.2 g/dL (6.4-8.2); TROPONIN-I <0.06 ng/mL (<0.06)
--- NOTE | 2020-06-17 15:28 | EKG ---
[address] [employer] [place] [address] ELECTROCARDIOGRAM REPORT Name: ENOCH SPRINGER [id number] Admission: 06/17/20 Attend Phys: Discharge: Date of : 39 Report #: [id number] [facility] ED Test Date: 2020-06-17 Test Time: 14:23:20 Pat Name: ENOCH SPRINGER Department: Room: Gender: M Drying Unit Felting Machine Operator: : 1940 Requested By: Chidi Griffith Order Number: [id number] MD: Joe Pearson Measurements Intervals [place] Rate: 126 P: [place]: QRS: -10 QRSD: 142 T: 57 QT: 367 QTc: 532 Interpretive Statements Atrial fibrillation Nonspecific intraventricular conduction delay Baseline wander in lead(s) V1,V2,V3,V4,V5,V6 Compared to ECG 05/31/2020 08:49:41 Sinus rhythm no longer present Electronically Signed On 06-17-2020 15:28:34 BUSINESS ANALYTICS FACULTY MEMBER by Joe Pearson [email or web address] <ELECTRONICALLY SIGNED> By: Joe Pearson MD, [facility] 06/17/20 1528 D: 02/1422 22 Joe Pearson MD, FACC /EPI
[2020-06-17] MEDS ORDERED: MIRAPEX0.25 MG PO (16:13)
[2020-06-17] MEDS ORDERED: PREDNISONE 10 M10 M1 PO (16:14)
[2020-06-17] MEDS ORDERED: TORSEMIDE20 MG PO (16:17)
[2020-06-17 17:25] VITALS: BP 128/63
[2020-06-17 18:15] LABS: FOLIC ACID 18.6 ng/mL (8.6-58.9)
--- NOTE | 2020-06-17 19:59 | NUR ---
REPORTS THAT PT TOOK XARELTO FOR A-FIB AND WAS TAKEN OFF 2 YRS AGO DUE TO PT HAVING UNCONTROLLED BLEEDING WITH NOSE BLEEDS, GI BLEED ETC. NOTES THAT HGB WAS 9.5 4 DAYS AGO AND 9.0 TODAY. HAD CONCERN FOR PT TO TAKE LOVENOX DAILY WHILE IN HOSPITAL. THIS REPORT AND INFO GIVEN TO CCU NURSE WHO WILL CONFIRM ANY ORDER CHANGES WITH
[2020-06-17 20:01] VITALS: BP 128/63
[2020-06-17 20:10] VITALS: BP 130/77
--- NOTE | 2020-06-17 22:29 | NUR ---
ADMITTED FROM ED AT 1999, ON 4L NC, LABORED BREATHING, DENIES PAIN AT TIME OF ADMIT, REQUIRING TO SIT UP STRAIGHT TO BREATHE, AFIB ON MONITOR, ORIENTED X3.
[2020-06-18 04:05] VITALS: BP 121/78
[2020-06-18 07:58] VITALS: BP 125/63
[2020-06-18 08:40] LABS: ALBUMIN 2.6 g/dL (3.4-5.0); ANION GAP 2 mmol/L (7-16); BUN 53 mg/dL (7-18); CALCIUM 9.2 mg/dL (8.5-10.1); CHLORIDE 99 mmol/L (98-107); CO2 40 mmol/L (21-32); CREATININE 1.9 mg/dL (0.7-1.3); GLUCOSE 254 mg/dL (74-106); PHOSPHORUS 4.1 mg/dL (2.5-4.9); POTASSIUM 4.9 mmol/L (3.5-5.1); SODIUM 141 mmol/L (136-145); TROPONIN-I <0.06 ng/mL (<0.06)
[2020-06-18 11:54] VITALS: BP 119/73
[2020-06-18 15:25] VITALS: BP 115/61
--- NOTE | 2020-06-18 15:48 | NUR ---
PT IS AXOX4, FORGETFUL. PT IS ON 3L VIA NC, AND DENYING SOA. PT IS SITTING COMFORTABLY IN CHAIR. PT AT BEDSIDE THIS AM. PT/OT CONSULTED. DIETARY CONSULTED. GERIATRICS CONSULTED. PT HR HAS BEEN ELEVATED THROUGHOUT THE DAY, WITH EPISODES UP INTO 140-150s DURING ACTIVITY. PT DENIES ANY DISCOMFORT WHEN THESE EPISODES OCCUR. POC IS TO MONITOR PT BP/HR, AND SOA WITH ACTIVITY. FALL PRECAUTIONS IN PLACE. NO CONCERNS AT THIS TIME.
--- NOTE | 2020-06-18 16:13 | NUR ---
MET WITH PATIENT WHO ADMITS WITH CHF. PATIENT RESIDES IN INDEPENDENT HOME WITH . 2 STEPS, THEN 2 MORES STEPS TO ENTER. PATIENT RESIDES WITH . PATIENT USES A CANE OR WALKER FOR AMBULATION. PATIENT HAS HOME OXYGEN VIA [employer] 3 LITERS AT RST 4LITERS WITH AMBULATION. PATIENT WITH RECENT DC FROM [facility] WITH [facility]. CURRENT WITH HOME HEALTH. PCP DR WHITING. PATIENT REPORTS HE IS VERY WEAK. HE REPORTS COMING TO HOSPITAL HIS NEEDED TO ASSIST. HIS KNEES BUCKLED 3 TIMES. HAD TO STOP A MAN WHO WAS DRIVING TO ASSIST. IN SPEAKING WITH SHE REPORTS PATIENT NEEDS POST ACUTE CARE. HE NEEDS TO GET STRONGER PRIOR TO RETURNING HOME, PER . [place]. PLAN TO NQUIRE INTO SKILLED FACILITIES.
[2020-06-18 20:21] VITALS: BP 111/67
[2020-06-19] VITALS (7 sets, daily range): BP systolic 95–129; BP diastolic 49–68
[2020-06-19 05:03] LABS: ALBUMIN 2.6 g/dL (3.4-5.0); CALCIUM 9.9 mg/dL (8.5-10.1); PHOSPHORUS 4.4 mg/dL (2.5-4.9); POTASSIUM 4.1 mmol/L (3.5-5.1)
--- NOTE | 2020-06-19 07:55 | NUR ---
SLEPT ON THE RECLINER TONIGHT,USES THE CPAP,COMPLIANT WITH THE FLUID RESTRICTION.MONITOR SHOWS AFIB.POC CONTINUED.
--- NOTE | 2020-06-19 16:34 | NUR ---
On Site Coordinator spoke with sterling Handley regarding SNF options and possible ltc placement pending his progress. She notes that they are not legally so she is not able to make decisions. She is meeting with pt's children this evening to update them and discuss dc planning. Pt's eldest son Florian Miller jr is his financial and medical dpoa. She will have Florian alatorre call me in the am as well as [facility];which is the closest facility to them. Message left for admissions at [facility] [phone], fax [phone]. Dc medical planner to fax skilled referral to them for review. Emmanuelle notes that the pt has a home bipap and o2 at 2-4 liters at rest and with activity. Will follow.
--- NOTE | 2020-06-19 16:56 | NUR ---
FAXED REFERRAL TO [facility] RECEIVED CONFIRMAITON WILL F/U WITH FACILITY ON TUESDAY.
[2020-06-19 19:04] LABS: URINE CREATININE 37.35 mg/dL; URINE PROTEIN (MG/DL) 11.1 mg/dL
--- NOTE | 2020-06-19 19:58 | NUR ---
ASSUMED CARE SHIFT CHANGE. ASSESSMENT CHARTED.MEDS GIVEN. VSS. HR ELEVATED CARDIOLOGY NOTIFIED ORDERS RECEIVED. PT WORKED WITH POC TOLERATING FAIR. O2 SATS WNL 3L O2. 24 HR URINE COLLECTED AND SENT TO LAB. CONTINUING TO DIURESE. PLAN FOR DC SKILLED ONCE MEDICALLY STABLE. CONTINUING POC. REPORT PASSED ONTO NOC NI.
[2020-06-20] VITALS (8 sets, daily range): BP systolic 96–111; BP diastolic 56–70
--- NOTE | 2020-06-20 03:53 | NUR ---
assumed care at 1900, awake, alert and oriented with periods of confusion, afib on the monitor, denies pain or sob, assessments as charted, meds given as per jun, slept in the recliner, cpap at night, will continue to monitor and follow poc
[2020-06-20 10:00] LABS: CALCIUM 9.4 mg/dL (8.5-10.1); CREATININE 2.6 mg/dL (0.7-1.3); POTASSIUM 3.9 mmol/L (3.5-5.1)
--- NOTE | 2020-06-20 10:26 | NUR ---
CONFIRMED WITH [facility] THAT THEY'RE REVIEWING REFERRAL AND WILL CONTACT US TODAY, 06/20/20. SPOKE TO HENRY IN INTAKE/ADMISSIONS. [facility] P [phone]; FAX [phone]
--- NOTE | 2020-06-20 11:55 | NUR ---
Message rec'd from pt's son Florian Quijano Return message left on his cell phone asking him to touch base with the socialworker at [facility]. They can accept the pt but need to verify his benefits. They do not take weekend admissions. He will need an updated covid test this weekend with anticipated dc early next week. He is having heart rate issues today and RT is checking his blood gases. Family would need to provide his home bipap to the facility and they will need a 124c. The facility will also need family to advise on if they anticipate need for transition to fpc care there. Will follow.
--- NOTE | 2020-06-20 19:45 | NUR ---
PT CARE ASSUMED AT 0700. ASSESSMENTS CHARTED. MEDICATIONS CHARTED. RAC IV, POSITIONAL. BSC, URINAL. ACHS. SINUS RHYTHM. DISCHARGE ON TUESDAY, NEEDS COVID TEST ON TUESDAY, ORDER ENTERED.
[2020-06-21 04:35] LABS: HEMOGLOBIN 9.5 gm/dL (14.0-18.0); MCH 31.5 pg (26.0-34.0); MCHC 32.7 g/dL (28.0-37.0); MCV 96.1 fL (80.0-100.0); RBC 3.02 mil/uL (4.50-6.00); RDW 14.8 % (10.5-14.5)
[2020-06-21 04:48] VITALS: BP 100/66
[2020-06-21 04:54] LABS: ALBUMIN 2.6 g/dL (3.4-5.0); ANION GAP 1 mmol/L (7-16); BUN 77 mg/dL (7-18); CALCIUM 9.4 mg/dL (8.5-10.1); CHLORIDE 98 mmol/L (98-107); CO2 41 mmol/L (21-32); CREATININE 2.6 mg/dL (0.7-1.3); GLUCOSE 229 mg/dL (74-106); PHOSPHORUS 4.7 mg/dL (2.5-4.9); POTASSIUM 3.4 mmol/L (3.5-5.1); SODIUM 140 mmol/L (136-145); TROPONIN-I <0.06 ng/mL (<0.06)
[2020-06-21 07:50] VITALS: BP 100/48
[2020-06-21 12:10] VITALS: BP 89/61
[2020-06-21 15:45] VITALS: BP 108/54
--- NOTE | 2020-06-21 18:23 | NUR ---
ASSUMED CARE SHIFT CHANGE. ASSESSMENT CHARTED.MEDS GIVEN PER MAR. VSS. PT STANDING WELL. DIURESING APPROPRIATELY. PT DENIES SOB. HR BETTER MANAGED TODAY, REMAINS AFIB 90S-LOW 100S. PLAN FOR [facility] ONCE MEDICALLY STABLE. PT CURRENTLY SITTING UP IN CHAIR, DENIES NEEDS. CONTINUING POC. WILL PASS ON REPORT TO RICHAR DAN.
[2020-06-21 19:38] VITALS: BP 112/56
[2020-06-22 03:46] LABS: ALBUMIN 2.7 g/dL (3.4-5.0); CALCIUM 9.6 mg/dL (8.5-10.1); CREATININE 2.4 mg/dL (0.7-1.3); POTASSIUM 3.8 mmol/L (3.5-5.1); TOTAL BILIRUBIN 0.3 mg/dL (0.2-1.0); TOTAL PROTEIN 6.2 g/dL (6.4-8.2)
[2020-06-22 04:02] VITALS: BP 111/69
--- NOTE | 2020-06-22 05:17 | NUR ---
ASSESSMENTS CHARTED, MEDS CHARTED GIVEN. PATIENT SITTING IN RECLINER DURING SHIFT. CONTROLLED AFIB DURING SHIFT. PATIENT ON 3 LITERS OXYGEN AND CPAP DURING EVENING. ON CONTINUOUS PULSE OX. PATIENT ON FLUID RESTRICTIONS PATIENT AWARE OF WATER LIMITATIONS, COMPLYING WITH LIMITATIONS WHILE HERE. PLAN IS FOR PATIENT TO TRANSFER TUESDAY TO [facility].
[2020-06-22 08:10] VITALS: BP 115/57
[2020-06-22 11:25] VITALS: BP 116/76
[2020-06-22 15:50] VITALS: BP 110/58
--- NOTE | 2020-06-22 15:51 | NUR ---
ASSESSMENT CHARTED. PT ALERT AND ORIENTED. PRN PAIN MED GIVEN WITH PARTIAL RELIEF. UP IN THE CHAIR THIS SHIFT. REPORT FEELING BETTER TODAY. NO CONCERNS AT THIS TIME. PROGRESSING WELL TOWARDS DISCHARGE GOAL.
[2020-06-22 19:46] VITALS: BP 125/81
[2020-06-23 03:28] LABS: BUN 74 mg/dL (7-18); CALCIUM 9.4 mg/dL (8.5-10.1); CHLORIDE 97 mmol/L (98-107); CREATININE 2.5 mg/dL (0.7-1.3); GLUCOSE 195 mg/dL (74-106); SODIUM 142 mmol/L (136-145)
[2020-06-23 03:48] LABS: CO2 > 45 mmol/L (21-32)
[2020-06-23 04:34] VITALS: BP 103/65
--- NOTE | 2020-06-23 07:34 | NUR ---
ASSESSMENTS CHARTED, MEDS CHARTED GIVEN. PATIENT SITTING IN CHAIR DURING SHIFT. ABLE TO READJUST HIMSELF IN THE CHAIR. CRITICAL LAB IN AM CARBON DIOXIDE GREATER THAN 45. CALLED NURSE PRACTICIONER, NO ORDERS GIVEN. PLAN OF CARE IS TO TRANSFER TO A SNF IN [place], [place] TODAY. FALL PRECAUTIONS IN PLACE DURING SHIFT.
[2020-06-23 07:50] VITALS: BP 110/52
[2020-06-23] MEDS ORDERED: ASPIR 8181 MG PO (09:46)
[2020-06-23] MEDS ORDERED: CEFUROXIME250 MG PO (09:46)
[2020-06-23] MEDS ORDERED: CARDIZEM CD 30300 M1 PO (09:46)
[2020-06-23] MEDS ORDERED: MAG6464 MG PO (09:47)
[2020-06-23] MEDS ORDERED: PACERONE 200 M200 M1 PO ×2 (09:48)
[2020-06-23 11:45] VITALS: BP 127/64
--- NOTE | 2020-06-23 13:04 | NUR ---
RECEIVED PT'S CARE AROUND 0725; PT. CHAIR; ALERT; DURING AM ASSESSMENT PT. AOX4; C/O BACK PAIN; REFUSED PRN PAIN MEDICATION; REQUESTED SCHEDULED GABAPENTIN; MEDICATION GIVEN EARLIER; NOTIFIED; [facility]; AFIB ON THE MONITOR; AM MEDICATION GIVEN; ST. NOT ABLE TO HAVE A BM FOR A FEW FAYS; OFFERED PRN MEDICATION, MIRALAX, REFUSED IT; ST. WANTS TO TRY BEFORE TAKING MEDICATION; RN INFORMATICS UNDERSTANDING; ST. WOULD LIKE TO USE THE BED SIDE COMMODE BEFORE D/C; RN INFORMATICS [facility]; D/C ORDERS ON PLACED; CALLED FOR REPORT; PER [facility] TRANSPORTATION ARRANGE AT 1330; PT. NOTIFIED; ASSESSMENT CHARGED; FOLLOWING POC; WILL WORK ON D/C PAPERS;
--- NOTE | 2020-06-23 13:11 | NUR ---
FAXED DISCHARGE ORDERS, SUMMARY AND NEGATIVE COVID RESULT TO [facility]. WILL CONFIRM WITH KIMBERLYN/LIAISON AT [facility] THAT THEY HAVE RECEIVED. SPOKE TO VIVIAN/LIFE PARTNER REGARDING BRINGING PATIENT'S BIPAP AND WALKER. REQUESTED [facility] TO TRANSPORT PATIENT AT 1330. [facility] WILL DINING CAR SERVER PATIENT SOON THEY ARE AVAILABLE. NURSING UNIT INFORMED. CHART COPY COMPLETED. [facility] P [phone]; FAX [phone] AD[address]ESS: [id number] [place] [id number]
== END 2020-06-23 13:45 | DRG 871 ==
LOC: ER 13:46 → EROBS 15:56 → 2N 15:56
PROVIDERS: Emergency Medicine; Internal Medicine; Nurse Practitioner; Nurse Practitioner Adult Health; ADMIT Hospitalist; ATTEND Hospitalist
DX: A41.9 Sepsis, unspecified organism (principal); I50.33 Acute on chronic diastolic (congestive) heart failure; J96.21 Acute and chronic respiratory failure with hypoxia; J18.9 Pneumonia, unspecified organism; E43 Unspecified severe protein-calorie malnutrition; J96.22 Acute and chronic respiratory failure with hypercapnia; N17.9 Acute kidney failure, unspecified; I48.21 Permanent atrial fibrillation; Z68.43 Body mass index [BMI] 50.0-59.9, adult; I13.0 Hypertensive heart and chronic kidney disease with heart failure and stage 1 through stage 4 chronic kidney disease, or unspecified chronic kidney disease; I48.92 Unspecified atrial flutter; E87.3 Alkalosis; J44.1 Chronic obstructive pulmonary disease with (acute) exacerbation; J44.0 Chronic obstructive pulmonary disease with (acute) lower respiratory infection; E78.00 Pure hypercholesterolemia, unspecified; I25.10 Atherosclerotic heart disease of native coronary artery without angina pectoris; G47.33 Obstructive sleep apnea (adult) (pediatric); E11.22 Type 2 diabetes mellitus with diabetic chronic kidney disease; N18.9 Chronic kidney disease, unspecified; N40.0 Benign prostatic hyperplasia without lower urinary tract symptoms; D64.9 Anemia, unspecified; I25.5 Ischemic cardiomyopathy; I27.20 Pulmonary hypertension, unspecified; E87.6 Hypokalemia; E11.51 Type 2 diabetes mellitus with diabetic peripheral angiopathy without gangrene; E03.9 Hypothyroidism, unspecified; E78.5 Hyperlipidemia, unspecified; Z20.822 Contact with and (suspected) exposure to COVID-19; Z87.891 Personal history of nicotine dependence; Z85.118 Personal history of other malignant neoplasm of bronchus and lung; Z98.42 Cataract extraction status, left eye; Z98.41 Cataract extraction status, right eye; Z79.4 Long term (current) use of insulin; Z79.899 Other long term (current) drug therapy; Z88.0 Allergy status to penicillin
CPT/HCPCS: 10081